=== PATIENT | male | born 1990 | race Caucasian/White ===

== ENCOUNTER 2018-01-17 16:24 | Emergency (ER) | payer OTHER ==
[~2018-01-17] VITALS: Ht 182.9 cm; Wt 176.9 kg
[2018-01-17] MEDS ORDERED: VALACYCLOVIR1000 MG PO (16:38)
[2018-01-17] MEDS ORDERED: ALLOPURINOL 10100 M1 PO (16:38)
[2018-01-17] MEDS ORDERED: SIMVASTATIN40 MG PO (16:38)
[2018-01-17 16:42] LABS: URINE BLOOD 3+ (Negative); URINE CLARITY CLEAR; URINE COLOR YELLOW; URINE GLUCOSE-RANDOM NEGATIVE (Negative); URINE KETONES 1+ (Negative); URINE LEUKOCYTES-REFLEX NEGATIVE (Negative); URINE NITRITE-REFLEX NEGATIVE (Negative); URINE PROTEIN 3+ (Negative); URINE SPECIFIC GRAVITY >= 1.030 (1.005-1.030)
[2018-01-17 16:43] LABS: URINE BILIRUBIN 2+ (Negative)
[2018-01-17 16:44] LABS: ICTOTEST (BILI CONFIRMATORY) Negative (Negative)
[2018-01-17 17:00] LABS: BACTERIA-REFLEX None Seen /HPF (None Seen); CASTS None Seen /LPF (None Seen); CRYSTALS None Seen /LPF (None Seen); MUCUS >6 Heavy strn/LPF (None Seen); SQUAMOUS >10 Many /LPF (0-3); URINE RBC 0-2 Rare /HPF (0-2); URINE WBC-REFLEX None Seen /HPF (0-5)
[2018-01-17 17:02] LABS: ABSOLUTE BASOPHILS 0.1 thou/uL (0.0-0.2); ABSOLUTE EOSINOPHILS 0.1 thou/uL (0.0-0.7); ABSOLUTE LYMPHOCYTES 2.6 thou/uL (0.8-5.3); ABSOLUTE MONOCYTES 1.3 thou/uL (0.0-1.2); BASOPHILS 0.8 %; EOSINOPHILS 0.5 %; HEMATOCRIT 45.3 % (42.0-52.0); HEMOGLOBIN 15.2 gm/dL (14.0-18.0); LYMPHOCYTES 16.3 %; MCHC 33.5 g/dL (28.0-37.0); MCV 86.6 fL (80.0-100.0); MONOCYTES 8.2 %; MPV 8.6 fl. (7.2-11.1); NUCLEATED RBCS 0 /100WBC; PLATELET COUNT* 233 thou/uL (150-400); POLYS 74.2 %; RBC 5.24 mil/uL (4.50-6.00); WBC 16.2 thou/uL (4.0-11.0)
[2018-01-17 17:12] LABS: CALCIUM 10.2 mg/dL (8.5-10.1); CREATININE 1.1 mg/dL (0.6-1.3); POTASSIUM 3.9 mmol/L (3.5-5.1)
[2018-01-17 17:17] LABS: ALBUMIN 3.7 g/dL (3.4-5.0); TOTAL BILIRUBIN 0.9 mg/dL (<0.1-1.0); TOTAL PROTEIN 8.4 g/dL (6.4-8.2)
[2018-01-17] MEDS ORDERED: FLAGYL500 MG PO (17:59)
[2018-01-17] MEDS ORDERED: CIPRO500 M1 PO (17:59)
[2018-01-17] MEDS ORDERED: TRAMADOL 50 MG50 MG PO (17:59)
[2018-01-17 18:23] VITALS: BP 157/74
== END 2018-01-17 18:23 | disposition home or self-care (01) ==
LOC: M.ERS 16:24
PROVIDERS: Nurse Practitioner Family
DX: K57.92 Diverticulitis of intestine, part unspecified, without perforation or abscess without bleeding (principal); R31.9 Hematuria, unspecified; E78.00 Pure hypercholesterolemia, unspecified; M10.9 Gout, unspecified